=== PATIENT | female | born 1980 | race Caucasian/White ===

== ENCOUNTER 2020-07-16 00:30 | Emergency (ER) | payer OTHER, SELFPAY ==
[2020-07-16 00:32] VITALS: BP 128/59; PULSE 55; RESP 23; TEMP 37; O2SAT 100; BMI 32.1
[2020-07-16] MEDS: Ketorolac 30 MG/ML Syringe IV (00:51)
[2020-07-16] MEDS: Morphine 4 MG/ML Syringe IV (00:51)
[2020-07-16] MEDS: Ondansetron 4 MG/2 ML Vial IV (00:51)
[2020-07-16] MEDS: 0.9% Normal Saline 1,000 ML 250 ML IV (00:52)
[2020-07-16 01:08] LABS: Absolute Lymphocyte Count 0.78 X10^3/uL (0.83-4.51); Absolute Neutrophil Count 9.3 X10^3/uL (2.0-7.7); Basophil# 0.01 X10^3/uL; Basophil% 0.1 % (0-1); Hematocrit 39.2 % (37-47); Hemoglobin 13.5 g/dL (12.0-15.0); Lymphocyte # 0.78 X10^3/ul (4.0); Lymphocyte % 7.5 % (19-41); Mean Corp Hgb Conc 34.4 g/dL (32-36); Mean Corpuscular Hgb 30.3 pg (27.0-32.0); Mean Corpuscular Volume 88.1 fL (81-99); Mean Platelet Vol. 10.3 fl (6.2-12.0); Monocyte# 0.28 X10^3/uL; Monocyte% 2.7 % (0-10); NRBC Flagged by Analyzer 0 % (0-5); Neutrophil # 9.26 X10^3/uL (2.7-7.7); Neutrophil % 89.4 % (47-70); Platelet Count 238 K/mm3 (150-450); RBC Distribution Width CV 11.6 % (11.6-14.6); RBC Distribution Width SD 37.1 fl (35.1-43.9); Red Blood Count 4.45 M/mm3 (4.2-5.4); White Blood Count 10.4 K/mm3 (4.4-11.0)
--- NOTE | 2020-07-16 01:13 | ED.VIS.GEN ---
History of Present Illness Chief Complaint: Flank Pain Informant: Patient Narrative: Patient stated approximately 3 weeks ago she started having pain in the left flank. She was diagnosed with a 9 mm kidney stone. She had a lithotripsy earlier today. Dr. Webster did her procedure today. She did not talk to him after. She did have pain medicines in the hospital was discharged at 4 PM and continues to have significant pain in the left flank. She had some nausea and vomiting tonight. She took a Percocet prior to coming in. She is coming in for pain control. Current severity is moderate to severe. She stated she is not been without pain since the procedure. Past Medical History - Allergies and Home Meds Allergies/Adverse Reactions: Allergies No Known Allergies Allergy (Verified 07/16/20 00:36) Prior records reviewed: Yes Past Medical History: - - Reviewed Surgical History: - - Lithotripsy Lives: With Family Smoking Status: Never smoker Alcohol: None Drugs: None Review of Systems General: Denies: Chills, Fever, Sweats Eyes: Denies: Visual changes - bilaterally, Diplopia ENT: Denies: Rhinorrhea, Sore throat Cardiovascular: Denies: Chest pain, Palpitations Respiratory: Denies: Dyspnea, Cough, Dyspnea on exertion Gastrointestinal: Reports: Abdominal pain, Nausea, Vomiting, - - Left flank pain. Denies: Diarrhea, Melena, Hematochezia Genitourinary: Denies: Dysuria, Hematuria, Frequency Musculoskeletal: Denies: Back pain, Extremity Pain Skin: Denies: Rash, Wounds Neurological: Denies: Headache, Weakness, Numbness Physical Exam Vital Signs/Narrative: Vital Signs Temp Pulse Resp BP Pulse Ox 07/16/20 00:32 98.6 F 55 L 23 H 128/59 H 100 General: Well nourished, Well developed, No Acute Distress Head: Normocephalic, Atraumatic Eyes: Perrl, EOMI ENT: Moist mucous membranes, No rhinorrhea Neck: Supple, Nontender Cardiovascular: Regular rate, Regular rhythm, No murmurs Respiratory: No distress, CTA bilaterally, Chest nontender Abdomen: Soft, Nontender, Nondistended, Normal bowel sounds Back: Nontender, Normal Inspection Extremities: Nontender, No edema Skin: Normal color, No rash Neurological: Alert, Oriented x3, Cranial nerves II-XII grossly intact, Normal Strength, Normal Sensation Psychological: Normal affect, Normal Mood Diagnostic/Tx/Re-eval - Medical Decision Making IV established given IV fluids. Lab work obtained. Given Zofran and morphine and Toradol. Patient continues to have pain and given dose of Dilaudid which really did help her pain. She is resting comfortably after these treatments. Lab work shows no leukocytosis. Electrolytes unremarkable. Urinalysis does show microscopic heme ketones and blood. Patient would like to be transferred to [facility] where her surgeon just had her procedure yesterday. I will reach out to the transfer center for intractable postoperative pain. I do not feel she needs a CT abdomen pelvis. Transfer center requested ER to ER transfer as there is no inpatient beds at this time. ED Disposition - Plan for ED Patient: Disposition: [facility] Diagnosis: Postoperative pain
[2020-07-16 01:17] LABS: Internal QC Validated? YES +Cl - CLEAR BKGD; Pregnancy, Serum, hCG Quali. NEGATIVE Negative
[2020-07-16 01:29] LABS: Anion Gap 9 (5-15); BUN 12 mg/dL (7-18); BUN/Creat Ratio 13.7 RATIO (10-20); Calcium,Total 8.8 mg/dL (8.5-10.1); Chloride 104 mmol/L (98-107); Creatinine, Serum 0.87 mg/dL (0.55-1.02); EST Glomerular Filtration Rate 76 mL/min (>60); Est Glom Filt Rate - Afr Amer 92 mL/min (>60); Estimated Creatinine Clearance 74.23 ml/min; Glucose 125 mg/dL (74-106); Potassium 4.7 mmol/L (3.5-5.1); Sodium Level 135 mmol/L (136-145)
[2020-07-16] MEDS: HYDROmorphone 1 MG/ML Syringe IV (01:37)
[2020-07-16 02:11] LABS: Bacteria 0 SEEN /hpf (None Seen); Mucous, Urine 0 SEEN /hpf (<or=2+)
[2020-07-16 02:15] LABS: Color, Urine Yellow (Yellow); Glucose, Dipstick Normal (Normal); Leukocyte Esterase-Dipstick 25 /ul (Negative); Nitrite-Dipstick Negative (Negative); Occult Blood-Urine 250 /ul (Negative); Protein-Dipstick 30 mg/dl (Negative); Specific Gravity, Urine 1.015 (1.002-1.030); Urine Bilirubin Dipstick Negative (Negative); Urine Clarity Cloudy (Clear); Urine Urobilinogen Normal (Normal); Urine pH 6.5 (5.0 - 8.0)
[2020-07-16 02:17] LABS: Ketone-Dipstick 150 mg/dl (Negative)
[2020-07-16 02:21] LABS: Red Blood Cells-Urine 25-50 SEEN /hpf (0-5); Squamous Epithelial Cells - UA 0-5 SEEN /hpf (5-10); White Blood Cells 0-5 SEEN /hpf (0-5)
[2020-07-16 02:31] VITALS: BP 120/57; PULSE 65; RESP 17; O2SAT 99
[2020-07-16 02:49] VITALS: PULSE 16
== END 2020-07-16 03:06 | disposition short-term general hospital (02) ==
PROVIDERS: Emergency Provider Emergency Medicine; PCP Family Medicine
DX: R10.9 Unspecified abdominal pain (principal); G89.18 Other acute postprocedural pain; R11.2 Nausea with vomiting, unspecified
CPT/HCPCS: 80048; 81001; 84703; 85025; 96361; 96374; 96375; 99284; J7030; A4216; J2405

== ENCOUNTER → 2020-11-13 09:24 | Outpatient (CLI) | payer OTHER, SELFPAY ==
[2020-11-13 10:42] LABS: Anion Gap 3 (5-15); BUN 13 mg/dL (7-18); BUN/Creat Ratio 17.5 RATIO (10-20); Calcium,Total 9.1 mg/dL (8.5-10.1); Chloride 107 mmol/L (98-107); Cholesterol 146 mg/dL (200); Creatinine, Serum 0.74 mg/dL (0.55-1.02); EST Glomerular Filtration Rate 92 mL/min (>60); Est Glom Filt Rate - Afr Amer 111 mL/min (>60); Glucose 85 mg/dL (74-106); High Density Lipoprotein 59 mg/dL; Potassium 4.1 mmol/L (3.5-5.1); Sodium Level 139 mmol/L (136-145); Triglycerides 60 mg/dL; Very Low Density Lipoprotein 12 mg/dL (5-40)
== END ==
PROVIDERS: PCP Family Medicine; Referring Provider Family Medicine; Visit Provider Family Medicine
DX: Z13.1 Encounter for screening for diabetes mellitus (principal); Z13.220 Encounter for screening for lipoid disorders
CPT/HCPCS: 36415; 80048; 80061

== ENCOUNTER → 2021-02-05 17:10 | Outpatient (CLI) | payer OTHER, SELFPAY ==
--- NOTE | 2021-02-05 17:12 | RAD_ITS ---
INDICATION: KIDNEY STONES EXAMINATION/TECHNIQUE: X-RAY - XR Abdomen 1 View COMPARISON: None FINDINGS: BOWEL GAS PATTERN: Non-obstructive. No bowel or stomach distention. FREE AIR: Not assessed on a single supine view. ORGANOMEGALY: Not seen. CALCIFICATIONS: No abnormal calcifications observed. LOWER CHEST: No acute pathology. BONES AND SOFT TISSUES: No acute pathology. OTHER: IUD in place. RAD/Abdomen Single View IMPRESSION: No abnormal calcifications seen. Electronically Signed: Cornelio Camejo MD at 22:18 EDT Tel , Service support ,
== END ==
PROVIDERS: PCP Family Medicine; Referring Provider Family Medicine; Visit Provider Family Medicine
DX: N20.0 Calculus of kidney (principal)
CPT/HCPCS: 74018

== ENCOUNTER → 2021-02-12 | Outpatient (CLI) | payer OTHER, SELFPAY ==
[2021-02-16 06:06] LABS: Chlamydia By Nucleic Acid AMP Negative (Negative)
[2021-02-16 09:28] LABS: Gonococcus By Nucleic Acid AMP Negative (Negative)
[2021-02-17 16:39] LABS: HPV Reflexed? NOT INDICATED
== END | disposition home or self-care (01) ==
LOC: LABSPEC 16:48
PROVIDERS: PCP Family Medicine; Visit Provider Obstetrics & Gynecology
DX: Z12.4 Encounter for screening for malignant neoplasm of cervix (principal); Z11.3 Encounter for screening for infections with a predominantly sexual mode of transmission
CPT/HCPCS: 87491; 87591; 88175; G0145

== ENCOUNTER → 2021-10-07 10:04 | Outpatient (CLI) | payer OTHER, SELFPAY ==
--- NOTE | 2021-10-07 10:15 | RAD_ITS ---
STUDY: X-RAY - LUMBAR SPINE REASON FOR EXAM: Female, 41 years old. BACK PAIN TECHNIQUE: 5 view(s) of the lumbar spine were obtained. COMPARISON: None FINDINGS: Normal lumbar lordosis. There is no substantial scoliosis. There is a normal alignment of the vertebrae. Normal vertebral bodies and endplates. Normal disc space heights. Some sacralization of the left side of the L5 vertebra. The soft tissue structures are unremarkable. RAD/L/S Spine Min 4 Views IMPRESSION: Normal x-ray examination of the lumbar spine. Electronically Signed: Jose Koo MD at 16:52 EST Tel , Service support ,
== END ==
PROVIDERS: PCP Family Medicine; Referring Provider Family Medicine; Visit Provider Family Medicine
DX: M54.50 Low back pain, unspecified (principal)
CPT/HCPCS: 72110

== ENCOUNTER 2021-11-13 09:30 | Outpatient (RCR) | payer OTHER, SELFPAY ==
--- NOTE | 2021-11-09 13:29 | HP.PTEVAL_ITS ---
Patient's Visit Information CRISTOPHER MARAVILLA is a 41 year old F referred to Physical Therapy by RUBÉN Frank with a diagnosis of LUMBAR BACK PAIN WITH RADICULULOPATHY,SACRAL DYSFUNCTION. Date of Evaluation: 11/09/21 Physical Therapist: Alonzo Carrillo, PT, Cert MDT, OCS - Visit Plan Frequency: 2x /Week Duration: 4 Weeks Plan: PT INTERVETIONS MICHAEL EX'S,PROGRESS WITH DLS,POSTURAL EX'S AND MODALTIES NEEDED - Subjective This 41 y/o female presents to physical therapy with lumbar radiculopathy. Patient has had lumbar radicular symptoms affecting LLE ~ 3 months. Symptoms have gradually, getting better. Patient symptoms where insidious onset. Patient HNP and stenosis ~ 11 years from MRI with h/o epidural injections and PT. Seen PA ,[facility].. prednisone and start PT. Aggravating factors bending, sitting, lifting ,standing and walking extended period. Alleviating factors heat/ice . Bowel/bladder -.Coughing/sneezing -. Patient has paresthesia/tingling + left leg. Pain affects sleeping . Patient pain affects QOL and function along with job demands. SOCIAL: with 3 children. VOCATION: Hairdresser - Pain Left Back Pain Intensity (Out of 10): 3 Pain Intensity Range: 10 Left Lower Extremity Pain Intensity (Out of 10): 0 Comment: constant tingling - Objective POSTURE: mild forward posture. PALAPTION: tender SI. NEURO: c/o paresthesia/tingling LLE ,reflexes L3-4,L4-5,L5-S1 2/3. SYMMTRIES: align. MMT: quads/hams/hip 4/5 ankle 4/5. LUMBAR ROM: flexion min/mid loss, extension min loss, side glides min loss. FLEXABLITY: hamstrings min loss - Special Tests L/S Slump test left side: Negative L/S Slump test right side: Negative L/S Left Straight Leg Raise: Negative L/S Right Straight Leg Raise: Negative Lumbar Standing: Flexion - Mechanical Response: No effect Lumbar Standing: Flexion - Symptoms During Testing: Centralizing Lumbar Standing: Flexion - Symptoms After Testing: Worse Lumbar Standing: Extension - Mechanical Response: No effect Lumbar Standing: Extension - Symptoms During Testing: Decreases Lumbar Standing: Extension - Symptoms After Testing: Better Comments:: tingling in leg Lumbar Standing: Right Side Glides - Mechanical Response: No effect Lumbar Standing: Right Side [place] - Symptoms During Testing: No effect Lumbar Standing: Right Side [place] - Symptoms After Testing: No effect Lumbar Standing: Left Side [place] - Mechanical Response: No effect Lumbar Standing: Left Side [place] - Symptoms During Testing: No effect Lumbar Standing: Left Side [place] - Symptoms After Testing: No effect Lumbar Lying: Flexion - Mechanical Response: No effect Lumbar Lying: Flexion - Symptoms During Testing: No effect Lumbar Lying: Flexion - Symptoms After Testing: No effect Lumbar Lying: Extension - Mechanical Response: No effect Lumbar Lying: Extension - Symptoms After Testing: Better - Balance/Special Test Scores Oswestry Low Back Score: 19 - Goals Goal 1:: I with HEP for back pain Goal Time Frame: 4-6 Weeks Goal 2:: Patient improve posture/body mechanics 75% during job and housework tasks Goal Time Frame: 4-6 Weeks Goal 3:: Patient to demonstrate 60 % improvement with decrease pain to improve function Goal Time Frame: 4-6 Weeks Goal 4:: Patient improve lumbar ROM for function of recovery to bend for job with hairdresser Goal Time Frame: 4-6 Weeks Goal 5:: Patient to improve back owesrty score by 5 points to improve QOL. Goal Time Frame: 4-6 Weeks - Rehabilitation Potential Physical Therapy Diagnosis: This patient has lumbar radiculopathy with derangement below knee worse with position, movement tests, lifting and sitting affects job demands and housework tasks along with h/o HNP thus benefit from skilled PT Rehabilitation Potential: Good - Anticipated Interventions Patient/Client Instruction: Educate patient on: Condition For the Purpose of:: To decrease pain, To increase ROM, To improve muscle perfor chato and motor function, To improve ability to perform ADL's, To increase tolerance to activity/condition/position, To decrease level of supervision to perform tasks, To improve ability of physical actions for home/community/work/leisure, To improve health of tissue, To decrease soft tissue restriction, To increase flexibility/ROM, To prevent re-injury Therapeutic Exercise to Include: Strength training, Body mechanics, Postural training, Flexibilty training, Dynamic Lumbar Stabilization, Michael Exercises For the Purpose of:: To decrease pain, To increase ROM, To improve muscle performance and motor function, To improve ability to perform ADL's, To increase tolerance to activity/condition/position, To improve performance and independence with ADL's, To improve ability of physical actions for home/community/work/leisure, To improve health of tissue, To decrease soft tissue restriction, To increase flexibility/ROM TENS: Yes IF ES: Yes Thermo therapy (hot pack): Yes Ultrasound (thermal/non thermal): Yes For the Purpose of:: To decrease pain, To increase ROM, To improve nutrient delivery to tissue, To increase oxygenation perfusion, To improve health of tissue, To decrease soft tissue restriction, To increase flexibility/ROM Thank you for the opportunity to evaluate your patient. For Medicare and Medicare HMO plans, please review the plan of care and approve it. It will need to be FAXED BACK to us at [phone] for Medicare purposes. For Medicare only, by signing this I certify the plan of care. Please let me know if there are questions or concerns regarding this plan of care. Physician Signature: Date:
--- NOTE | 2022-02-02 13:36 | HP.PT.NRP ---
CRISTOPHER MARAVILLA was seen in my office for initial evaluation on 11/09/21. The following Plan of Care was established for this patient: Initial Frequency: 2x /Week Initial Duration: 4 Weeks Patient/Client Instruction: Educate patient on: Condition For the Purpose of:: To decrease pain, To increase ROM, To improve muscle performance and motor function, To improve ability to perform ADL's, To increase tolerance to activity/condition/position, To decrease level of supervision to perform tasks, To improve ability of physical actions for home/community/work/leisure, To improve health of tissue, To decrease soft tissue restriction, To increase flexibility/ROM, To prevent re-injury Therapeutic Exercise to Include: Strength training, Body mechanics, Postural training, Flexibilty training, Dynamic Lumbar Stabilization, Gary Exercises For the Purpose of:: To decrease pain, To increase ROM, To improve muscle performance and motor function, To improve ability to perform ADL's, To increase tolerance to activity/condition/position, To improve performance and independence with ADL's, To improve ability of physical actions for home/community/work/leisure, To improve health of tissue, To decrease soft tissue restriction, To increase flexibility/ROM TENS: Yes IF ES: Yes Thermo therapy (hot pack): Yes Ultrasound (thermal/non thermal): Yes For the Purpose of:: To decrease pain, To increase ROM, To improve nutrient delivery to tissue, To increase oxygenation perfusion, To improve health of tissue, To decrease soft tissue restriction, To increase flexibility/ROM This patient was last seen in our office . Pertinent comments regarding their Physical therapy will appear below: Patient seen for PT for Gary ex' ,DLS and postural ex's and HEP doing better thus is d/c At this point I will be discontinuing this patient from physical therapy. I would be happy to see this patient again in the future if found appropriate by the physician. Thank you! Alonzo Carrillo, PT, Cert MDT, OCS Balance/Gait/Functional tests - Balance/Special Test Scores Oswestry Low Back Score: 6
== END 2021-11-13 19:00 | disposition home or self-care (01) ==
LOC: PT 09:30
PROVIDERS: PCP Family Medicine; Referring Provider Nurse Practitioner; Visit Provider Nurse Practitioner
DX: M53.3 Sacrococcygeal disorders, not elsewhere classified (principal); M54.16 Radiculopathy, lumbar region
CPT/HCPCS: 97110; 97162

== ENCOUNTER 2022-02-23 14:55 | Emergency (ER) | payer OTHER, SELFPAY ==
[2022-02-23 14:56] VITALS: BP 131/59; PULSE 72; RESP 15; TEMP 36; O2SAT 97; BMI 32.5
--- NOTE | 2022-02-23 15:19 | ED.VIS.BACK ---
HPI History of Present Illness Chief Complaint: Back Informant: patient Onset/Context/Timing Onset: Month(s) Context: Gradual Onset Timing: Continuous Quality: Sharp Location: Lumbar, Buttock and Left Leg Current Severity: Moderate Maximum Severity: Severe Worsened by: improves with Movement Relieved by: Remaining Still Associated Symptoms Associated Symptoms: Radiation to Left Leg; Negative for Numbness, Fever, Abdominal Pain, Dysuria, Unable to Ambulate, Unable to Transfer, Urinary Retention, Urinary Incontinence, Constipation and Fecal Incontinence Narrative Narrative: 41-year-old female history of kidney stones. States she has had back pain radiating to her left buttock down her left leg into her calf and into her heel for last 6 months. Is been constant but waxes and wanes in intensity. She recently had a trip to [place] and flew home today and came right from the airport due to the pain. She denies any weakness or numbness. No fever. No trauma. No bowel or bladder incontinence. Had normal lumbar spine x-rays in September. She has appointment to see her primary care provider this week to get an MRI ordered and has a pending appointment to be seen at the [place] [facility] by a back specialist. She denies any prior back surgery or prior history other than the last 6 months. Prior similar symptoms: Yes Recent Illness/Hospitalization: No [facility] Medical History History of kidney stones Home Medications metaxalone [Skelaxin] 800 mg PO TID #21 tab 02/23/22 [Rx Last Taken Unknown] oxycodone-acetaminophen [Percocet] 1 tab PO Q4H PRN 4 Days #20 tab 02/23/22 [Rx Last Taken Unknown] Allergy/AdvReac Type Severity Reaction Status Date / Time No Known Allergies Allergy Verified 02/23/22 14:57 Social History Smoking Status: Never smoker ROS ROS ED ROS Narrative Back pain. Review of Systems ROS Unobtainable: Denies due to encephalopathy Constitutional Constitutional ED: Denies fever(s) Eyes Eyes: Denies change in vision ENT ENT ED: Denies ear pain Cardiovascular Cardiovascular: Denies chest pain or palpitations Respiratory/Chest Respiratory/Chest: Denies dyspnea or sputum Gastrointestinal Gastrointestinal: Denies abdominal pain, diarrhea, nausea or vomiting Genitourinary Genitourinary ED: Denies dysuria or hematuria Musculoskeletal Musculoskeletal: Reports back pain; Denies arthralgias, myalgias or neck pain Integumentary Denies rash Neurologic Neurologic: Denies headache(s) Psychiatric Psychiatric: Denies depression Endocrine Endocrinology: Denies polyuria Hematologic/Lymphatic Hematologic/Lymphatic: Denies easy bruising Allergic/Immunologic Allergic/Immunologic ED: Denies urticaria EXAM Physical Exam Narrative Exam Narrative: 21-year-old female no acute distress vital signs stable afebrile. H EENT exam unremarkable. Lungs are clear. Heart regular rhythm. Abdomen soft nontender. Moving all 4 extremities. Neurovascularly intact. 5/5 sales agent strength bilaterally. Normal sensation upper extremities. Dorsi plantarflexion intact lower extremities. Negative straight leg raise bilaterally. Normal sensation. No cauda equina. No saddle anesthesia. Back she has reproducible lumbar tenderness and exquisite tenderness over left SI joint. There is no redness or warmth or signs of trauma to her back. Neurologic exam normal. No cauda equina. Const Vital Signs: 02/23/22 14:56 Temperature 96.8 F L Temperature Source Temporal Pulse Rate 72 Respiratory Rate 15 Blood Pressure 131/59 H Blood Pressure Mean 83 Pulse Ox 97 Oxygen Delivery Method Room Air Positive well nourished, well developed and obese; Negative for cachectic, contractures or unkempt General Appearance ED: well developed and NAD; Negative for unkempt, cachectic, contractures or pallor Nutritional Appearance: obese; Negative for cachectic HEENT Reports moist mucous membranes Negative for trauma or tenderness Eyes PERRL and EOMs intact bilaterally General Eye ED: Negative for pale conjunctiva or scleral icterus Neck no lymphadenopathy, supple and no JVD General: Negative for tenderness Resp normal respiratory effort and clear to auscultation bilaterally Effort and Inspection: Negative for pain with movement or other Auscultation: Negative for rales or rhonchi Cardio regular rate, regular rhythm, S1 normal heart sound, S2 normal heart sound and no murmurs GI normal to inspection, nondistended, normoactive bowel sounds, soft to palpation, non-tender, non-distended and no masses Inspection: Negative for abdominal distention Auscultation: Negative for hyperactive bowel sounds Palpation: Negative for tender, guarding or rebound tenderness present Back/Spine Negative for normal to inspection or no thoracic nor lumbar tenderness Back/Spine Narrative: Lumbar spine tenderness. Left SI tenderness. Both lower extremities neurovascular intact. Normal sensation. Normal motor strength. Negative straight leg raise bilaterally General Back: Negative for CVA tenderness or scar(s) Cervical Spine: Negative for cervical spine tenderness and Negative for paracervical muscle tenderness Thoracic Spine / Upper Back: paraspinal muscle tenderness Lumbar Spine / Lower Back: ROM limited and straight leg raise negative bilaterally; Negative for straight leg raise positive right or straight leg raise positive - left Extremity normal to inspection General Extremety ED: Negative for edema or tenderness General Extremity: Negative for edema Neuro oriented x3 and no sensory deficits noted Sensorium / Orientation: alert; Negative for confused, lethargic or stuporous Motor Exam: strength 5/5 throughout; Negative for strength abnormal Psych mental status grossly normal Appearance: Negative for unkempt Attitude: No agitated Mood & Affect: Negative for depressed or tearful Skin no rashes or lesions noted and no wounds General Skin Exam: Negative for jaundice or pallor Rashes: No rashes noted Trauma: Negative for abrasion MDM MDM MDM Narrative Medical decision making narrative: 41-year-old female 6-month history of low back pain radiating to her left buttock and down her left leg into her calf and heel. Either has chronic sciatica or an acute lumbar disc with radiculopathy. She will be treated with IV Dilaudid, Toradol and Zofran. She had negative plain films in September. She knows I am unable to obtain MRI today in the ER she has had scheduled follow-up. She will also see a organizational development specialist in follow-up. Our goal today is to improve her pain. She will be discharged to home on prednisone, [place] and a muscle relaxant in case she has associated muscle spasms. Discharge Plan Triage Chief Complaint: Back ED Provider: Canelo Koenig Dx/Rx/DC Orders Clinical Impression: Acute back pain with sciatica, Back pain with left-sided radiculopathy Instructions: ED Back Pain (Acute or Chronic) Prescriptions: New oxycodone-acetaminophen [Percocet] 5-325 mg tablet 1 tab PO Q4H PRN (Reason: pain) 4 Days Qty: 20 RF: 0 metaxalone [Skelaxin] 800 mg tablet 800 mg PO TID Qty: 21 RF: 0 Primary Care Provider: Mnauel Morris Referrals: Manuel Morris MD [Primary Care Provider] - Activity Restrictions/Additional Instructions: Follow-up with your primary care provider and your spine surgeon at [facility] as scheduled. Percocet for pain. 1-2 every 4 hours as needed. Prednisone daily to decrease inflammation Skelaxin as needed as a muscle relaxant but again this will not help sciatica or disc pain. It will help if you have muscle spasms or muscle pain also. Hot shower and warm bath to relax the muscles. Massage. Return if severe pain you cannot control, weakness in your leg or bowel or bladder incontinence. Disposition Disposition: Home, Self Care
--- NOTE | 2022-02-23 16:11 | ED.RN ---
Spoke with Dr Koenig regarding patients concerns about taking meds that are ordered due to previous experience with meds. States he will speak with patient regarding concerns.
[2022-02-23] MEDS: Ketorolac 30 MG/ML Syringe IV (16:38)
[2022-02-23 16:40] VITALS: BP 121/57; PULSE 74; RESP 16; O2SAT 100
[2022-02-23] MEDS: Ondansetron 4 MG/2 ML Vial IV (16:40)
[2022-02-23] MEDS: HYDROmorphone 1 MG/ML Syringe IV (16:40)
[2022-02-23 17:28] VITALS: BP 126/68; PULSE 74; RESP 15; O2SAT 98
== END 2022-02-23 17:31 | disposition home or self-care (01) ==
LOC: ED 15:38
PROVIDERS: Emergency Provider Emergency Medicine; PCP Family Medicine; Visit Provider Emergency Medicine
DX: M54.42 Lumbago with sciatica, left side (principal); M54.10 Radiculopathy, site unspecified; E66.9 Obesity, unspecified; Z68.32 Body mass index [BMI] 32.0-32.9, adult
CPT/HCPCS: 96374; 96375; 99284; J7040; A4216; J2405

== ENCOUNTER → 2022-03-01 | Outpatient (CLI) | payer SELFPAY, OTHER ==
--- NOTE | 2022-03-01 09:06 | MRI_ITS ---
STUDY: MRI LUMBAR SPINE WITHOUT CONTRAST REASON FOR EXAM: Female, 41 years old. Numbness/tingling down left leg, difficulty ambulating TECHNIQUE: Standardized fat and water weighted pulse sequences were obtained in the sagittal and axial planes. COMPARISON: Lumbar spine radiographs 10/07/2021. FINDINGS: T11-T12 and T12-L1: (Sagittal only). Normal endplates. Normal disc height, hydration and morphology. No ventral extradural defects. Normal central canal and bilateral intervertebral neural foramina. Straightening of the lumbar spine curvature. There is no substantial scoliosis. Normal conus medullaris that terminates at the upper T12 vertebral body level. L1-2: Normal endplates. Normal disc height, hydration and morphology. Normal bilateral facet joints. Normal central canal and bilateral lateral recesses. Normal bilateral intervertebral neural foramina. L2-3: Normal endplates. Normal disc height, hydration and morphology. Normal bilateral facet joints. Normal central canal and bilateral lateral recesses. Normal bilateral intervertebral neural foramina. L3-4: Normal endplates. Normal disc height, hydration and morphology. Normal bilateral facet joints. Normal central canal and bilateral lateral recesses. Normal bilateral intervertebral neural foramina. L4-5: Normal endplates. Mild disc space height narrowing. Mild asymmetric ventral extradural defect is posterior bulging annulus. No significant facet arthropathy. Moderate central canal stenosis with an AP canal diameter of 8.3 mm. Normal bilateral lateral recesses. Normal bilateral intervertebral neural foramina.. L5-S1: Normal endplates. Mild disc space height narrowing. Normal disc hydration and morphology. Tapered termination of the thecal sac at the upper S1 body level. No significant facet arthropathy. Normal bilateral lateral recesses. Normal bilateral intervertebral neural foramina. Normal visualized sacral ala. Normal visualized paraspinous soft tissue structures. MRI/Spine Lumbar (Routine) IMPRESSION: 1. Moderate central canal stenosis at L4-L5 disc space level with an AP canal diameter of 8.3 mm and asymmetric posterior bulging annulus, eccentric to the left. I am unable to confirm displacement of the left L5 nerve root sleeve in this supine MRI lumbar spine study. Advise clinical correlation if there are symptoms of left L5 nerve root sleeve radiculopathy upon upright positioning or weightbearing. 2. No MRI evidence of lumbar extruded disc fragment or nerve root displacement. Electronically Signed: Ton Bravo MD at 10:23 EDT ,
== END | disposition home or self-care (01) ==
PROVIDERS: PCP Family Medicine; Referring Provider Registered Nurse; Visit Provider Registered Nurse
DX: R20.0 Anesthesia of skin (principal)
CPT/HCPCS: 72148

== ENCOUNTER 2022-05-12 16:00 | Outpatient (RCR) | payer OTHER, SELFPAY ==
--- NOTE | 2022-04-13 10:02 | HP.PTEVAL_ITS ---
Patient's Visit Information CRISTOPHER MARAVILLA is a 41 year old F referred to Physical Therapy by RUBÉN Gonzalez with a diagnosis of s/p lumbar L4/L5 unilateral laminectomy, L foraminotomy of L4/L5 and L4/L5. Date of Evaluation: 04/13/22 Physical Therapist: Manish Thompson DPT - Visit Plan Frequency: 2x /Week Duration: 4-6 Months Plan: Start with neutral spine isometrics, wean from brace and progress ROM starting in 3 weeks. Progress as tolerated Educate on proper postures and proper body mechanics. - Subjective Pt. is here today for her initial evaluation s/p lumbar L4/L5 unilateral laminectomy, L foraminotomy of L4/L5 and L4/L5 microdiscectomy on 03/12/22. Pt. reports having pain for several months going down her LLE to her foot prior to having surgery. Pt. reports that she is doing much better since surgery, but is still having some N/T at lateral LLE, mostly in proximal fall region. She has been walking with increasing distances up to 10 minutes currently. Pt. has been sleeping well. She has been compliant with no bending, twisting and lifting. Pt. reports being slightly fearful to start doing exercises. She does not have a scheduled appointment to follow up, but is to follow up if needed. She did report she was trying to put a try of cookies away the other day and had to bend down to do so and felt some mild pain, but was better with in a few hours. She does report being very hesitant to move in general, but would like to get back to all gym and work activities as previously. Pt. 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 Patient in hopeful to get back to work in April. - Pain L side of lumbar spine Pain Intensity (Out of 10): 1 Pain Intensity Range: 0, 4 - Objective POSTURE: Pt. has decent posture in stance. Pt. has slight decreased lumbar lordosis, guarded posture. PALPATION: Pt. has normal healing incision, looks like there is a stich working its way out at mid incision, no signs of infection. I told her to leave the stich alone. Pt. consents. NEURO: Pt. has decreased sensation at L lateral distal LE, from ~ knee down to light touch. Pt. is able to rise on heels and toes without signs of myotomal weakness. ROM: LUMBAR SPINE: flexion mod loss, exten- DNT, SB mod loss bilat, rotation min loss bilat. Tight HS bilat. MMT: RLE: 5/5 throughout, LLE: ankle 5/5 throughout; knee: ext 5/5, flexion 5-/5; hip: flexion 5/5, abd 4/5, ext 4/5. Core strength- poor. GAIT: Pt. ambulates without AD, she has very guarded posture with minimal arm swing. STAIRS: Pt. able to complete without issues. She reports having to push a bit more with ascending, but no issues with descending. - Balance/Special Test Scores Oswestry Low Back Score: 10 - Goals Goal 1:: LTG: Pt. to be I with HEP for core stability exercises. Goal Time Frame: 4-6 Weeks Goal 2:: STG: Pt. to be able to walk with normal gait pattern and decreased guarded posture. Goal Time Frame: 2 Weeks Goal 3:: LTG: Pt. to ambulate 30+ minutes without increase in lumbar spine soreness. Goal Time Frame: 4-6 Weeks Goal 4:: LTG: Pt. to have increased core strength to fair+ allowing for increased stability and reduce stress at lumbar spine with all work related activities. Goal Time Frame: 4-6 Weeks Goal 5:: LTG: Pt. to have increased lumbar ROM by 25% in all directions without increase in symptoms. Goal Time Frame: 4-6 Weeks Goal 6:: LTG: Pt. to resume all work activities without increase in lumbar spine symptoms. Goal Time Frame: 6-8 Weeks - Rehabilitation Potential Physical Therapy Diagnosis: Pt. has signs and symptoms consistent with s/p lumbar L4/L5 unilateral laminectomy, L foraminotomy of L4/L5 and L4/L5 microdiscectomy on 03/12/22. Pt. has subsequent hypomobility, weakness and difficulty with walking. Pt. would benefit from PT to address the above limitations progressing back to work and recreational activities. Rehabilitation Potential: Excellent - Anticipated Interventions Patient/Client Instruction: Educate patient on: Condition, Plan of Care, Risk Factors, Benefits of Fitness Program For the Purpose of:: To improve health and function, To foster healthy habits, To improve decision making, To facilitate caregiver knowledge, To improve self management, To prevent re-injury, To improve ability to perform tasks related to life management Therapeutic Exercise to Include: Strength training, Power training, Postural training, Flexibilty training, Gait and locomotor training, Passive ROM, Active ROM, Dynamic Lumbar Stabilization For the Purpose of:: To decrease pain, To decrease swelling/inflammation, To increase ROM, To improve nutrient delivery to tissue, To increase oxygenation perfusion, To improve muscle performance and motor function, To improve ability to perform ADL's, To improve health of tissue, To decrease soft tissue re striction, To increase flexibility/ROM Cryotherapy (ice pack, ice massage): Yes Thermo therapy (hot pack): Yes For the Purpose of:: To decrease pain, To decrease swelling/inflammation, To increase ROM, To improve nutrient delivery to tissue, To increase oxygenation perfusion, To improve muscle performance and motor function, To improve ability to perform ADL's, To increase tolerance to activity/condition/position, To decrease level of supervision to perform tasks, To improve health of tissue, To decrease soft tissue restriction, To increase flexibility/ROM Thank you for the opportunity to evaluate your patient. For Medicare and Medicare HMO plans, please review the plan of care and approve it. It will need to be FAXED BACK to us at [phone] for Medicare purposes. For Medicare only, by signing this I certify the plan of care. Please let me know if there are questions or concerns regarding this plan of care. Physician Signature: Date:
== END 2022-05-12 19:00 | disposition home or self-care (01) ==
LOC: PT 16:00
PROVIDERS: PCP Family Medicine; Referring Provider Nurse Practitioner Acute Care; Visit Provider Nurse Practitioner Acute Care
DX: Z48.89 Encounter for other specified surgical aftercare (principal); M54.16 Radiculopathy, lumbar region
CPT/HCPCS: 97110; 97161

== ENCOUNTER → 2024-02-27 | Outpatient (CLI) | payer OTHER, SELFPAY ==
[2024-02-27 12:16] LABS: Absolute Lymphocyte Count 1.65 X10^3/uL (0.83-4.51); Absolute Neutrophil Count 5.2 X10^3/uL (2.0-7.7); Basophil# 0.04 X10^3/uL; Basophil% 0.5 % (0-1); Eosinophils% 1.3 % (0-5); Hematocrit 39.4 % (37-47); Hemoglobin 13.4 g/dL (12.0-15.0); Lymphocyte # 1.65 X10^3/ul (0.83-4.51); Lymphocyte % 21.8 % (19-41); Mean Corpuscular Hgb 30.7 pg (27.0-32.0); Mean Corpuscular Volume 90.4 fL (81-99); Mean Platelet Vol. 9.8 fl (6.2-12.0); Monocyte# 0.58 X10^3/uL; Monocyte% 7.7 % (0-10); NRBC Flagged by Analyzer 0 % (0-5); Neutrophil # 5.19 X10^3/uL (2.7-7.7); Neutrophil % 68.4 % (47-70); Platelet Count 232 K/mm3 (150-450); RBC Distribution Width CV 11.8 % (11.6-14.6); RBC Distribution Width SD 38.7 fl (35.1-43.9); Red Blood Count 4.36 M/mm3 (4.2-5.4); White Blood Count 7.6 K/mm3 (4.4-11.0)
[2024-02-27 12:38] LABS: Vitamin D,25 Hydroxy 24.9 ng/mL
[2024-02-27 13:41] LABS: ALB/GLOB Ratio 0.9 RATIO (0.9-2.4); AST(SGOT) 19 U/L (15-37); Alanine Aminotransfer ALT/SGPT 25 U/L (13-56); Albumin, Serum 3.5 g/dL (3.2-5.0); Alkaline Phosphatase 45 U/L (45-117); Anion Gap 5 (5-15); BUN 13 mg/dL (7-18); BUN/Creat Ratio 14.8 RATIO (10-20); Calcium,Total 8.6 mg/dL (8.5-10.1); Chloride 106 mmol/L (98-107); Cholesterol 139 mg/dL (200); Creatinine, Serum 0.88 mg/dL (0.55-1.02); EST Glomerular Filtration Rate 75 mL/min (>60); Est Glom Filt Rate - Afr Amer 90 mL/min (>60); Globulin 3.7 g/dL (2.2-4.2); Glucose 95 mg/dL (74-106); High Density Lipoprotein 48 mg/dL; Potassium 3.9 mmol/L (3.5-5.1); Protein, Total 7.2 g/dL (6.4-8.2); Sodium Level 138 mmol/L (136-145); Thyroid Stim Hormone (TSH) 1.95 uIU/mL (0.358-3.74); Triglycerides 78 mg/dL; Very Low Density Lipoprotein 16 mg/dL (5-40)
[2024-02-27 13:47] LABS: Hemoglobin A1c 5.1 % (3.8-5.6)
== END | disposition home or self-care (01) ==
PROVIDERS: PCP Family Medicine; Referring Provider Family Medicine; Visit Provider Family Medicine
DX: Z13.1 Encounter for screening for diabetes mellitus (principal); E66.9 Obesity, unspecified
CPT/HCPCS: 36415; 80053; 80061; 82306; 83036; 84443; 85025

== ENCOUNTER 2025-03-18 08:08 | Outpatient (CLI) | payer OTHER, SELFPAY ==
[2025-03-18 11:09] LABS: Vitamin D,25 Hydroxy 56.6 ng/mL (30-100)
== END 2025-03-18 23:59 | disposition home or self-care (01) ==
LOC: MFPLAB 08:09
PROVIDERS: PCP Family Medicine; Referring Provider Family Medicine; Visit Provider Family Medicine
DX: E55.9 Vitamin D deficiency, unspecified (principal)
CPT/HCPCS: 36415; 82306

== ENCOUNTER → 2025-05-20 | Outpatient (CLI) | payer OTHER, SELFPAY ==
[2025-05-23 16:09] LABS: HPV APTIMA, High Risk Negative (Negative)
== END | disposition home or self-care (01) ==
LOC: LABSPEC 15:56
PROVIDERS: PCP Family Medicine; Referring Provider Obstetrics & Gynecology; Visit Provider Obstetrics & Gynecology
DX: Z12.4 Encounter for screening for malignant neoplasm of cervix (principal)
CPT/HCPCS: 87624; 88175; G0145

== ENCOUNTER → 2025-05-30 | Outpatient (CLI) | payer OTHER, SELFPAY ==
--- NOTE | 2025-05-30 16:56 | RAD_ITS ---
PROCEDURE: LUMBAR SPINE 2 OR 3 VIEWS 05/30/2025 REASON FOR EXAM: SCIATICA TECHNIQUE: LUMBAR SPINE 2 OR 3 VIEWS COMPARISON: No FINDINGS: Moderate S shaped scoliosis. Mild facet arthritis mainly L3 through S1. Multilevel mild/moderate disc space narrowing, most pronounced L5-S1. Partially sacralized L5. No acute bone or soft tissue pathology. RAD/Lumbar Spine 2 or 3 Views IMPRESSION: Lumbar spine scoliosis and degeneration. [facility]
== END | disposition home or self-care (01) ==
PROVIDERS: PCP Family Medicine; Referring Provider Family Medicine; Visit Provider Family Medicine
DX: M54.30 Sciatica, unspecified side (principal)
CPT/HCPCS: 72100

== ENCOUNTER → 2025-06-07 | Outpatient (CLI) | payer OTHER, SELFPAY ==
--- NOTE | 2025-06-07 12:30 | BI_ITS ---
EXAM: SCRN MAMM (CAD)W/AILIN BILAT DATE: 06/07/2025 CLINICAL HISTORY: F, Age 45 y/o , SCREENING FOR BREAST CANCER TECHNIQUE: SCRN MAMM (CAD)W/AILIN BILAT COMPARISON: Baseline examination, no priors. FINDINGS: TISSUE DENSITY: The breasts are heterogeneously dense, which may obscure small masses. The mammogram demonstrates that the patient has dense breasts. Supplemental screening with whole breast ultrasound or MRI may be considered for further evaluation. Bilateral Breast Mammographic Findings: No significant masses, calcifications or other abnormalities are identified. BI/SCRN MAMM (CAD)W/AILIN BILAT IMPRESSION: There is no mammographic evidence of malignancy. OVERALL FINAL ASSESSMENT BI-RADS 1: NEGATIVE. RECOMMENDATION: Routine annual follow-up in 1 Year A letter with findings and recommendations will be mailed to the patient. Reading Location: [id number]
== END | disposition home or self-care (01) ==
LOC: OPBI 12:23
PROVIDERS: PCP Family Medicine; Referring Provider Obstetrics & Gynecology; Visit Provider Obstetrics & Gynecology
DX: Z12.31 Encounter for screening mammogram for malignant neoplasm of breast (principal)
CPT/HCPCS: 77063; 77067